=== PATIENT | male | born 1980 ===

== ENCOUNTER 2021-01-11 20:30 | Emergency (ER) | payer SELFPAY ==
[~2021-01-11] VITALS: Ht 180.3 cm; Wt 106.8 kg
[2021-01-11 20:55] VITALS: BP 145/97
== END 2021-01-12 01:26 | disposition left against medical advice (07) ==
LOC: ER 20:31
DX: R07.89 Other chest pain (principal); Z53.21 Procedure and treatment not carried out due to patient leaving prior to being seen by health care provider
CPT/HCPCS: 93005